=== PATIENT | female | born 1975 | race American Indian/Alaskan Native ===

== ENCOUNTER 2018-07-06 01:53 | Emergency (ER) | payer MEDICAID ==
[2018-07-06 02:03] VITALS: BP 142/102
[2018-07-06 02:37] LABS: Hemoglobin 13.4 gm/dl (10.1-14.3); Mean Corpuscular HGB Conc 34 % (30-34); Mean Corpuscular Volume 99 fl (79-97); Red Blood Count 4.03 M/mm3 (3.65-5.03); Red Cell Distribution Width 13.2 % (13.2-15.2)
--- NOTE | 2018-07-06 02:39 | XRay Report ---
FINAL REPORT EXAM: XR CHEST ROUTINE 2V HISTORY: dyspnea COMPARISON: None available. FINDINGS:: Frontal and lateral views of the chest obtained. Heart upper limits of normal in size. Mi nimal linear scarring or atelectasis at the left lung base. Otherwise, no focal consolidation or effu esvin. No pneumothorax. Visualized bony thorax is grossly intact. IMPRESSION:: Minimal linear scarring or atelectasis at the left lung base. Lungs otherwise clear. He art is upper limits of normal in size.
[2018-07-06 02:40] LABS: Bacteria,Urine 1+ /HPF (Negative); Bilirubin,Urine NEG (Negative); Blood,Urine SM (Negative); Color,Urine Yellow (Yellow); Mucus,Urine FEW /HPF; Protein,Urine <15 mg/dL mg/dL (Negative); Urobilinogen,Urine < 2.0 mg/dL (<2.0)
[2018-07-06 02:46] LABS: Platelet Count 245 K/mm3 (140-440)
[2018-07-06 03:00] LABS: Albumin 4.6 g/dL (3.9-5); Calcium 9.6 mg/dL (8.4-10.2)
[2018-07-06] MEDS ORDERED: NACL 0.9% 1000 ML 1,000 ML IV ONE (03:00)
[2018-07-06] MEDS ORDERED: TORADOL IV ONE (03:00)
[2018-07-06] MEDS ORDERED: XYLOCAINE CARDIAC IV ONE ×2 (03:01→04:00)
--- NOTE | 2018-07-06 03:02 | Emergency Department Report ---
ED General Adult HPI - General Chief complaint: Abdominal Pain Stated complaint: ABDOMINAL PAIN, BACK PAIN, SHORTNESS OF BREATH Time Seen by Provider: 07/06/18 02:50 Source: patient, RN notes reviewed Mode of arrival: Ambulatory Limitations: No Limitations - History of Present Illness Initial comments: This is a 42-year-old female, who is not known to this provider previously, who reports that she is not , denies recently delivering within the past 6 weeks, reports a history of hypertension. The patient presents to the ER with a complaint of abdominal pain, stomach pain, not eating, shortness of breath, dizziness, headache. Symptoms present 1 week. Abdominal pain is in the left lower quadrant and suprapubic region, increases with palpation and decreases with rest. It does not radiate anywhere. Patient describes her dizziness as a sensation of lightheadedness. This is present for 1 week. It is painless. It does not radiate anywhere. It does not appear to have exacerbating or relieving factors. Patient also describes a frontal headache, present for one week, not sudden or thunderclap in nature, not maximal in intensity within the first hour, and not the most intense headache of her life. There is no neck pain or neck stiffness, there is no sore throat and there is no fever. Patient reports chronic shortness of breath. She reports is gotten worse within the past month. She denies leg pain, leg swelling, recent surgery, oral contraceptive use. Patient denies dysuria. She describes resolved vaginal discharge, reports that she saw her vendor representatives last month, and was "negative for STDs." Patient is taking ibuprofen at home, with minimal relief and reported symptoms. -: Gradual, days(s), week(s) Location: head, abdomen Radiation: non-radiation Quality: aching Consistency: other Improves with: other Worsens with: other Associated Symptoms: headaches, loss of appetite, shortness of breath, weakness. denies: confusion, chest pain, cough, diaphoresis, fever/chills, malaise, nausea/vomiting, rash, seizure, syncope - Related Data Home Medications Medication Instructions Recorded Confirmed Last Taken PARoxetine [Paxil] 20 mg DAILY 05/29/13 05/30/13 05/29/13 11:36 20mg Previous Rx's Medication Instructions Recorded Last Taken Type Ranitidine HCl [Zantac] 150 mg PO BID #60 tablet 05/30/13 Unknown Rx Azithromycin [Zithromax Z-GOMEZ] 250 mg PO DAILY #6 tablet 04/15/14 Unknown Rx Cyclobenzaprine [Flexeril 10mg] 10 mg PO TID PRN #30 tablet 07/15/14 Unknown Rx HYDROcodone/APAP 5-325 [[place] 1 each PO Q6HR PRN #20 tablet 07/15/14 Unknown Rx 5-325 mg TAB] Ibuprofen [Motrin] 600 mg PO Q8H PRN #50 tablet 07/15/14 Unknown Rx Lisinopril/Hydrochlorothiazide 1 tab PO QDAY #60 tablet 07/15/14 Unknown Rx [Zestoretic 20-25 mg] Acetaminophen [Tylenol Arthritis] 650 mg PO Q6HR PRN #30 tablet.er 07/06/18 Unknown Rx Dicyclomine [Bentyl] 10 mg PO QID PRN #20 capsule 07/06/18 Unknown Rx Ibuprofen [Motrin] 600 mg PO Q8H PRN #30 tablet 07/06/18 Unknown Rx Allergies Allergy/AdvReac Type Severity Reaction Status Date / Time No Known Allergies Allergy Unverified 05/29/13 21:03 ED Review of Systems ROS: Stated complaint: ABDOMINAL PAIN, BACK PAIN, SHORTNESS OF BREATH Other details as noted in HPI Constitutional: malaise. denies: fever Eyes: denies: eye discharge, vision change ENT: denies: congestion Respiratory: shortness of breath Cardiovascular: denies: chest pain, syncope Gastrointestinal: abdominal pain Genitourinary: discharge. denies: dysuria Musculoskeletal: denies: back pain Skin: denies: lesions Neurological: headache, weakness Psychiatric: anxiety. denies: depression ED Past Medical Hx - Past Medical History Previous Medical History?: Yes Hx Hypertension: Yes Hx Congestive Heart Failure: No Hx Diabetes: No Hx Asthma: Yes Hx COPD: No Additional medical history: sarcoidosis - Surgical History Past Surgical History?: Yes Hx Breast Surgery: Yes (BREAST REDUCTION) Additional Surgical History: breast reduction - Social History Smoking Status: Current Every Day Smoker Substance Use Type: None - Medications Home Medications: Home Medications Medication Instructions Recorded Confirmed Last Taken Type PARoxetine [Paxil] 20 mg DAILY 05/29/13 05/30/13 05/29/13 11:36 History 20mg Ranitidine HCl [Zantac] 150 mg PO BID #60 tablet 05/30/13 Unknown Rx Azithromycin [Zithromax Z-GOMEZ] 250 mg PO DAILY #6 tablet 04/15/14 Unknown Rx Cyclobenzaprine [Flexeril 10mg] 10 mg PO TID PRN #30 tablet 07/15/14 Unknown Rx HYDROcodone/APAP 5-325 [[place] 1 each PO Q6HR PRN #20 tablet 07/15/14 Unknown Rx 5-325 mg TAB] Ibuprofen [Motrin] 600 mg PO Q8H PRN #50 tablet 07/15/14 Unknown Rx Lisinopril/Hydrochlorothiazide 1 tab PO QDAY #60 tablet 07/15/14 Unknown Rx [Zestoretic 20-25 mg] Acetaminophen [Tylenol Arthritis] 650 mg PO Q6HR PRN #30 tablet.er 07/06/18 Unknown Rx Dicyclomine [Bentyl] 10 mg PO QID PRN #20 capsule 07/06/18 Unknown Rx Ibuprofen [Motrin] 600 mg PO Q8H PRN #30 tablet 07/06/18 Unknown Rx ED Physical Exam - General Limitations: No Limitations General appearance: alert, in no apparent distress, anxious - Head Head exam: Present: atraumatic, normocephalic - Eye Eye exam: Present: normal appearance, PERRL, EOMI, other (visual acuity intact to finger counting, color perception, reading at a close distance). Absent: nystagmus - ENT ENT exam: Present: normal exam, normal orophraynx, mucous membranes moist, normal external ear exam - Neck Neck exam: Present: normal inspection, full ROM. Absent: tenderness, men ingismus - Respiratory Respiratory exam: Present: normal lung sounds bilaterally. Absent: respiratory distress - Cardiovascular Cardiovascular Exam: Present: regular rate, normal rhythm, normal heart sounds. Absent: bradycardia, tachycardia, irregular rhythm, systolic murmur, diastolic murmur, rubs, gallop - GI/Abdominal GI/Abdominal exam: Present: soft, tenderness, other (suprapubic and left lower quadrant abdominal tenderness. There is no right lower quadrant tenderness, th ere is no right upper quadrant tenderness, there is negative Reina sign. There is negative Rovsing sign). Absent: distended, guarding, rebound, rigid, pulsatile mass - Extremities Exam Extremities exam: Present: normal inspection, full ROM, other (2+ pulses noted in the bilateral upper, lower extremities. Compartments soft. No long bony tenderness. The pelvis is stable.). Absent: pedal edema, joint swelling, calf tenderness - Back Exam Back exam: Present: normal inspection, full ROM. Absent: tenderness, CVA t enderness (R), paraspinal tenderness, vertebral tenderness - Neurological Exam Neurological exam: Present: alert, oriented X3, CN II-XII intact, normal gait (there is no pass pointing. There is normal wbtl-ke-brsw. There is negative pronator drift. There is normal gait. There is normal tandem gait.), other (Extraocular movements intact. Tongue midline. No facial droop. Facial sensation intact to light touch in the V1, V2, V3 distribution bilaterally. 5 and 5 strength in 4 extremities.. Sensation is intact to light touch in 4 extremities.). Absent: motor sensory deficit - Psychiatric Psychiatric exam: Present: anxious - Skin Skin exam: Present: warm, dry, intact, normal color. Absent: rash ED Course Vital Signs 07/06/18 01:57 Temperature 98.9 F Pulse Rate 84 Respiratory 16 Rate Blood Pressure 142/102 O2 Sat by Pulse 100 Oximetry - Reevaluation(s) Reevaluation #1: 07/06/18 05:06 Differential diagnosis, including but not limited to: Constipation, ovarian cysts, renal colic, pelvic inflammatory disease, inflammatory bowel disease, infectious intra-abdominal disease, acute coronary syndrome, pulmonary embolus, orthostasis, vagal event, pneumonia, migraine headache, tension headache, cluster headache Assessment and plan: 42-year-old female with multiple complaints. In terms of the patient's abdominal pain, this appears to be her major complaint, we will treat her with pain medication. We will perform a gynecologic examination, transvaginal ultrasound has excluded torsion, and we are awaiting CT scan of the abdomen and pelvis. Unlikely to be dangerous or emergent pathology at this point in time. In terms of the patient's shortness of breath, dizziness, lightheadedness, she reports no pulmonary embolus or DVT risk factors, she is low risk by well's criteria, she had a negative d-dimer, and she is perc negative Troponin was negative 1, EKG essentially unchanged from prior, low risk by MARYANN score, low risk by heart score, x-ray of the chest within normal limits, not tachycardic, not hypoxic, as per the [employer] clinical policy, myocardial infarction may be excluded with 1 set of cardiac enzymes as symptoms present for greater than 8 hours. She can follow up electively with an outpatient primary care doctor for her shortness of breath. In terms of the patient's headache, she will be treated with Toradol, she had a nonfocal and unremarkable neurologic examination, with a Cheryl Coma Scale of 15, with an NIH score of 0, and a benign neurologic examination. Based off of the history physical, it is my penis he does not require advanced neuroimaging at this time. Reevaluation #2: 07/06/18 05:14 Patient reports that she has not had sex in the past month, and last month, she had a gynecologic examination and STD screening performed by her private vendor representatives. She indicated she would prefer to follow up with her outpatient vendor representatives to have a repeat examination. CT scan of the abdomen and pelvis is negative. No active vomiting. Belly soft on repeat exam. Feels improved. Noted to be playing on a cellular phone. That does not appear to be an emergent medical condition at this time, the patient is medically suitable to follow-up as an outpatient with her complaints. ED Medical Decision Making - Lab Data Result diagrams: 07/06/18 02:10 07/06/18 02:10 Vital Signs 07/06/18 01:57 Temperature 98.9 F Pulse Rate 84 Respiratory 16 Rate Blood Pressure 142/102 O2 Sat by Pulse 100 Oximetry Lab Results 07/06/18 07/06/18 07/06/18 Range/Units 02:10 02:10 02:10 WBC 8.3 (4.5-11.0) K/mm3 RBC 4.03 (3.65-5.03) M/mm3 Hgb 13.4 (10.1-14.3) gm/dl Hct 40.0 (30.3-42.9) % MCV 99 H (79-97) fl MCH 33 H (28-32) pg MCHC 34 (30-34) % RDW 13.2 (13.2-15.2) % Plt Count 245 (140-440) K/mm3 PT 13.0 (12.2-14.9) Sec. INR 0.94 (0.87-1.13) D-Dimer (0-234) ng/mlDDU Sodium 141 (137-145) mmol/L Potassium 3.6 (3.6-5.0) mmol/L Chloride 103.2 (98-107) mmol/L Carbon Dioxide 24 (22-30) mmol/L Anion Gap 17 mmol/L BUN 19 H (7-17) mg/dL Creatinine 1.2 (0.7-1.2) mg/dL Estimated GFR 59 ml/min BUN/Creatinine Ratio 16 % Glucose 99 (65-100) mg/dL Calcium 9.6 (8.4-10.2) mg/dL Total Bilirubin 0.30 (0.1-1.2) mg/dL AST 21 (5-40) units/L ALT 18 (7-56) units/L Alkaline Phosphatase 63 (35-129) units/L Troponin T (0.00-0.029) ng/mL NT-Pro-B Natriuret Pep 27.62 (0-450) pg/mL Total Protein 8.1 (6.3-8.2) g/dL Albumin 4.6 (3.9-5) g/dL Albumin/Globulin Ratio 1.3 % Lipase 37 (13-60) units/L HCG, Qual (Negative) HCG, Quant (0-4) mIU/mL Urine Color (Yellow) Urine Turbidity (Clear) Urine pH (5.0-7.0) Ur Specific [place] (1.003-1.030) Urine Protein (Negative) mg/dL Urine Glucose (UA) (Negative) mg/dL Urine Ketones (Negative) mg/dL Urine Blood (Negative) Urine Nitrite (Negative) Urine Bilirubin (Negative) Urine Urobilinogen (<2.0) mg/dL Ur Leukocyte Esterase (Negative) Urine WBC (Auto) (0.0-6.0) /HPF Urine RBC (Auto) (0.0-6.0) /HPF U Epithel Cells (Auto) (0-13.0) /HPF Urine Bacteria (Auto) (Negative) /HPF Urine Mucus /HPF 07/06/18 07/06/18 07/06/18 Range/Units 02:10 02:10 02:10 WBC (4.5-11.0) K/mm3 RBC (3.65-5.03) M/mm3 Hgb (10.1-14.3) gm/dl Hct (30.3-42.9) % MCV (79-97) fl MCH (28-32) pg MCHC (30-34) % RDW (13.2-15.2) % Plt Count (140-440) K/mm3 PT (12.2-14.9) Sec. INR (0.87-1.13) D-Dimer (0-234) ng/mlDDU Sodium (137-145) mmol/L Potassium (3.6-5.0) mmol/L Chloride (98-107) mmol/L Carbon Dioxide (22-30) mmol/L Anion Gap mmol/L BUN (7-17) mg/dL Creatinine (0.7-1.2) mg/dL Estimated GFR ml/min BUN/Creatinine Ratio % Glucose (65-100) mg/dL Calcium (8.4-10.2) mg/dL Total Bilirubin (0.1-1.2) mg/dL AST (5-40) units/L ALT (7-56) units/L Alkaline Phosphatase (35-129) units/L Troponin T < 0.010 (0.00-0.029) ng/mL NT-Pro-B Natriuret Pep (0-450) pg/mL Total Protein (6.3-8.2) g/dL Albumin (3.9-5) g/dL Albumin/Globulin Ratio % Lipase (13-60) units/L HCG, Qual Negative (Negative) HCG, Quant 2.48 (0-4) mIU/mL Urine Color (Yellow) Urine Turbidity (Clear) Urine pH (5.0-7.0) Ur Specific [place] (1.003-1.030) Urine Protein (Negative) mg/dL Urine Glucose (UA) (Negative) mg/dL Urine Ketones (Negative) mg/dL Urine Blood (Negative) Urine Nitrite (Negative) Urine Bilirubin (Negative) Urine Urobilinogen (<2.0) mg/dL Ur Leukocyte Esterase (Negative) Urine WBC (Auto) (0.0-6.0) /HPF Urine RBC (Auto) (0.0-6.0) /HPF U Epithel Cells (Auto) (0-13.0) /HPF Urine Bacteria (Auto) (Negative) /HPF Urine Mucus /HPF 07/06/18 07/06/18 Range/Units 02:10 02:25 WBC (4.5-11.0) K/mm3 RBC (3.65-5.03) M/mm3 Hgb (10.1-14.3) gm/dl Hct (30.3-42.9) % MCV (79-97) fl MCH (28-32) pg MCHC (30-34) % RDW (13.2-15.2) % Plt Count (140-440) K/mm3 PT (12.2-14.9) Sec. INR (0.87-1.13) D-Dimer 135.7 (0-234) ng/mlDDU Sodium (137-145) mmol/L Potassium (3.6-5.0) mmol/L Chloride (98-107) mmol/L Carbon Dioxide (22-30) mmol/L Anion Gap mmol/L BUN (7-17) mg/dL Creatinine (0.7-1.2) mg/dL Estimated GFR ml/min BUN/Creatinine Ratio % Glucose (65-100) mg/dL Calcium (8.4-10.2) mg/dL Total Bilirubin (0.1-1.2) mg/dL AST (5-40) units/L ALT (7-56) units/L Alkaline Phosphatase (35-129) units/L Troponin T (0.00-0.029) ng/mL NT-Pro-B Natriuret Pep (0-450) pg/mL Total Protein (6.3-8.2) g/dL Albumin (3.9-5) g/dL Albumin/Globulin Ratio % Lipase (13-60) units/L HCG, Qual (Negative) HCG, Quant (0-4) mIU/mL Urine Color Yellow (Yellow) Urine Turbidity Clear (Clear) Urine pH 5.0 (5.0-7.0) Ur Specific [place] 1.010 (1.003-1.030) Urine Protein <15 mg/dl (Negative) mg/dL Urine Glucose (UA) Neg (Negative) mg/dL Urine Ketones Neg (Negative) mg/dL Urine Blood Sm (Negative) Urine Nitrite Neg (Negative) Urine Bilirubin Neg (Negative) Urine Urobilinogen < 2.0 (<2.0) mg/dL Ur Leukocyte Esterase Neg (Negative) Urine WBC (Auto) 9.0 H (0.0-6.0) /HPF Urine RBC (Auto) 3.0 (0.0-6.0) /HPF U Epithel Cells (Auto) 6.0 (0-13.0) /HPF Urine Bacteria (Auto) 1+ (Negative) /HPF Urine Mucus Few /HPF - EKG Data -: EKG Interpreted by Me EKG shows normal: sinus rhythm, axis, intervals, QRS complexes Rate: normal - EKG Data When compared to previous EKG there are: no significant change Interpretation: no acute changes, unchanged when compared t 07/06/18 05:05 Sinus, 67 beats per minute, normal axis, normal intervals, not consistent with ST elevation myocardial infarction, appears to be unchanged from prior EKG from May 2013. - Radiology Data Radiology results: pending, report reviewed, image reviewed interpreted by me: X-ray of the chest is negative for acute disease. Pelvic ultrasound demonstrates functional cysts in both ovaries. No evidence of ovarian torsion noted. Fibroids noted. Small nabothian cysts noted. Critical care attestation.: If time is entered above; I have spent that time in minutes in the direct care of this critically ill patient, excluding procedure time. ED Disposition Clinical Impression: Lightheadedness, Lower abdominal pain Disposition: DC-01 TO HOME OR SELFCARE Is pt being admited?: No Does the pt Need Aspirin: No Condition: Good Instructions: Abdominal Pain (ED), Dyspnea (ED) Additional Instructions: Increased consumption of water to 6-8 cups of water per day. Eat plenty of fruits, fibers, vegetables. Do not take metformin for the next 48 hours, if patient takes this medication. Avoid consumption of sugary drinks. Take the medications as needed/directed. Follow up with a door patcher within the next week. Follow-up with a button decorating machine operator within the next 4-6 weeks. Return to the ER right away with new pain, worsening pain, migration of pain, projectile vomiting, change in mental status, confusion, inability to speak, inability to breathe, new, worsening or different symptoms. Referrals: [facility] [Provider Group] - as needed [facility] [Provider Group] - as needed Forms: Work/School Release Form(ED)
[2018-07-06 03:11] LABS: INR 0.94 (0.87-1.13)
[2018-07-06] MEDS ORDERED: NACL 0.9% IV ONE (04:00)
--- NOTE | 2018-07-06 04:45 | Ultrasound Report ---
FINAL REPORT EXAM: US PELVIS DUPLEX DOPPLER COMP HISTORY: pelvic pain TECHNIQUE: Transabdominal imaging was obtained of the pelvis with Doppler interrogation of the adnex a. FINDINGS: The uterus is anteverted measuring 7.9 cm x 4.9 cm x 4.7 cm. The endometrial thickness is 4.1 mm. The re is a shadowing IUD in the endometrial cavity. There is a hyperechoic fibroid in the anterior wall of the body uterus measuring 1.9 cm x 1.7 cm x 2 cm. There is a hypoechoic fibroid in the posterior w all the uterus measuring 2.1 cm x 1.6 cm x 1.5 cm. There is a small nabothian cysts in the cervix. Fr ee fluid is not seen. The right ovary measures 2 cm x 0.8 cm x 1.4 cm. There is a hemorrhagic cyst in the right ovary measu ring up to 1.2 cm in diameter. The blood flow is normal to the right ovary. The left ovary measures 2 cm x 0.6 cm x 2.0 cm. There is a complex follicle measuring up to 8 millime ters in diameter. The blood flow is normal to left ovary. IMPRESSION: Small functional cysts in both ovaries. No evidence of ovarian torsion. Two fibroids in the body uterus as described. Small nabothian cyst.
--- NOTE | 2018-07-06 04:47 | Ultrasound Report ---
FINAL REPORT EXAM: US TRANSVAGINAL HISTORY: pelvic pain TECHNIQUE: Transvaginal imaging was obtained the pelvis along with Doppler interrogation of the adne xa. FINDINGS: The uterus is anteverted measuring 7.9 cm x 4.9 cm x 4.7 cm. The endometrial thickness is 4.1 mm. The re is a shadowing IUD in the endometrial cavity. There are fibroids along the anterior and posterior bahena of the body uterus. The anterior fibroid measures 1.9 cm x 1.7 cm x 2 cm. The posterior fibroid measures 2.1 cm x 1.6 cm x 1.5 cm. There is a 7 mm nabothian cysts in the cervix. Free fluid is not seen The right ovary measures 2 cm x 0.8 cm x 1.4 cm. There is a hemorrhagic cyst measuring up to 1.2 cm i n diameter. The blood flow is normal to the right ovary. The left ovary measures 2 cm x 0.6 cm x 2 cm. There is an 8 millimeter follicle in left ovary. Blood flow is normal to left ovary. IMPRESSION: Small functional cysts in both ovaries. No evidence of ovarian torsion. Two fibroids in the body uterus as described. Small nabothian cysts. No evidence of free fluid or adnexal masses.
--- NOTE | 2018-07-06 05:03 | Cat Scan Report ---
FINAL REPORT EXAM: CT ABDOMEN PELVIS W CON HISTORY: lower abd pain TECHNIQUE: Routine axial imaging was obtained of the abdomen and pelvis following the intravenous in jection of 100 cc of Omnipaque 300. Delayed imaging was obtained through the kidneys ureters and blad dee. Sagittal and coronal reconstructions were reviewed. FINDINGS: The lung bases are negative for infiltrates or effusions. There is a small hiatal hernia. The liver, gallbladder and biliary tree appear normal. The pancreas, spleen, and adrenal glands appea r normal. The kidneys enhance normally. There is no evidence of hydronephrosis. The abdominal aorta i s normal in caliber. The portal vein enhances normally. The bowel loops are normal in caliber and cou rse. There is a moderate amount retained fecal content. The appendix is not enlarged. There is no ángela dence of free fluid or adenopathy. In the pelvis the uterus is normal size and contains a T-shaped IU D in the expected position. The bladder appears normal. There are no adnexal masses. The skeletal str uctures do not show any acute changes. IMPRESSION: No acute process in the abdomen and pelvis.
[2018-07-06] MEDS ORDERED: TORADOL ONE (05:21)
== END 2018-07-06 06:22 | disposition home or self-care (01) ==
LOC: ED 01:53
DX: R10.32 Left lower quadrant pain (principal); R42 Dizziness and giddiness; I10 Essential (primary) hypertension; J45.909 Unspecified asthma, uncomplicated; F17.200 Nicotine dependence, unspecified, uncomplicated
CPT/HCPCS: 36415; 71046; 74177; 76830; 80053; 81001; 83690; 83880; 84484; 84702; 84703; 85027; 85379; 85610; 93005; 93010; 93975; 96365; 96375; 99284; J1885; J2001; J7030; Q9967

== ENCOUNTER 2018-10-09 10:46 | Day surgery (SDC) | payer MEDICAID ==
[~2018-10-09 10:46] MED LIST: NACL 0.9% 1000 ML 1,000 ML IV SCH
== END 2018-10-09 10:47 | disposition home or self-care (01) ==
LOC: GIO 10:46
PROVIDERS: ATTEND Internal Medicine Gastroenterology
DX: R10.13 Epigastric pain (principal); R11.0 Nausea; R14.1 Gas pain; F17.210 Nicotine dependence, cigarettes, uncomplicated; E66.9 Obesity, unspecified; E07.9 Disorder of thyroid, unspecified; I10 Essential (primary) hypertension; J45.909 Unspecified asthma, uncomplicated; Z53.8 Procedure and treatment not carried out for other reasons; Z79.899 Other long term (current) drug therapy; Z98.891 History of uterine scar from previous surgery; Z98.890 Other specified postprocedural states; Z80.8 Family history of malignant neoplasm of other organs or systems

== ENCOUNTER 2019-02-01 19:34 | Emergency (ER) | payer MEDICAID ==
[2019-02-01] MEDS ORDERED: TORADOL IV ONE (20:32)
[2019-02-01] MEDS ORDERED: NACL 0.9% 1000 ML 1,000 ML IV ONE (20:33)
--- NOTE | 2019-02-01 20:34 | Event Note ---
ED Screening Note Date of service: 02/01/19 Time: 20:29 ED Screening Note: 43 y o female presents with cc of sob and headache worsening x 1 week This initial assessment/diagnostic orders/clinical plan/treatment(s) is/are subject to change based on patients health status, clinical progression and re- assessment by fellow clinical providers in the ED. Further treatment and workup at subsequent clinical providers discretion. Patient/guardian urged not to elope from the ED as their condition may be serious if not clinically assessed and managed. Initial orders include:
--- NOTE | 2019-02-01 21:17 | XRay Report ---
CHEST PA AND LATERAL VIEWS INDICATION: sob. COMPARISON: 07/06/2018 FINDINGS: Support devices: None Heart: Normal and unchanged Lungs/Pleura: No acute pulmonary or pleural findings. IMPRESSION: 1. No significant abnormality and no interval change. Signer Name: Artem Jewell MD Signed: 02/01/2019 9:13 PM Workstation Name: [id number]
[2019-02-01 21:25] LABS: BUN/Creatinine Ratio 14; Blood Urea Nitrogen 10 mg/dL (7-17); Calcium 9.4 mg/dL (8.4-10.2); Hemolysis Index 15
[2019-02-01 21:26] LABS: Basophils # (Auto) 0.2 K/mm3 (0.0-0.1); Basophils % (Auto) 1.9 % (0.0-1.8); Eosinophils # (Auto) 0.3 K/mm3 (0.0-0.4); Eosinophils % (Auto) 2.9 % (0.0-4.3); Hematocrit 43.9 % (30.3-42.9); Hemoglobin 14.8 gm/dl (10.1-14.3); Lymphocytes # (Auto) 2.8 K/mm3 (1.2-5.4); Lymphocytes % (Auto) 31.7 % (13.4-35.0); Mean Corpuscular HGB Conc 34 % (30-34); Mean Corpuscular Volume 98 fl (79-97); Monocytes # (Auto) 0.5 K/mm3 (0.0-0.8); Monocytes % (Auto) 5.3 % (0.0-7.3); Platelet Count 248 K/mm3 (140-440); Red Blood Count 4.49 M/mm3 (3.65-5.03); Red Cell Distribution Width 12.9 % (13.2-15.2)
[2019-02-01] MEDS ORDERED: REGLAN IV ONE (22:40)
[2019-02-01] MEDS ORDERED: BENADRYL IV ONE (22:40)
[2019-02-01] MEDS ORDERED: CATAPRES PO ONE (22:40)
[2019-02-01] MEDS ORDERED: TORADOL ONE (22:43)
--- NOTE | 2019-02-01 22:57 | Emergency Department Report ---
ED General Adult HPI - General Chief complaint: Dyspnea/Respdistress Stated complaint: MIGRAINE/SOB/BLURRY VISION Time Seen by Provider: 02/01/19 20:29 Source: patient Mode of arrival: Ambulatory Limitations: No Limitations - History of Present Illness Initial comments: 43-year-old -[place] female presents to the emergency room for headache, blurred vision and shortness of breath 1 week. Patient reports that her headache is located occipital area and throbbing with headache tenderness. Patient reports that she has noticed her blood pressure has been elevated and when she checked her blood pressure at [facility] today it was 200/119. Patient r eports that this headache does not feel like her typical migraine. Patient reports that she is currently on amlodipine 10 mg daily. Patient complains of blurred vision to both eyes. She denies any nausea vomiting. She reports a significant intermittent sharp pains that shoot. Antoine and does have a past medical history of hypertension. She is followed by her care provider. Onset/Timin -: week(s) Location: head Radiation: non-radiation Quality: sharp, constant, other (throbbing) Consistency: intermittent Improves with: none Worsens with: none Associated Symptoms: headaches, other (blurred vision) Treatments Prior to Arrival: none - Related Data Home Medications Medication Instructions Recorded Confirmed Last Taken Losartan-Hctz 50-12.5 mg Tab 1 tab PO DAILY 12/18/18 12/18/18 Unknown Previous Rx's Medication Instructions Recorded Last Taken Type hydroCHLOROthiazide [Hctz] 12.5 mg PO QDAY #30 capsule 02/02/19 Unknown Rx Allergies Allergy/AdvReac Type Severity Reaction Status Date / Time No Known Allergies Allergy Verified 10/09/18 08:46 ED Review of Systems ROS: Stated complaint: MIGRAINE/SOB/BLURRY VISION Other details as noted in HPI Comment: All other systems reviewed and negative Eyes: vision change Gastrointestinal: denies: abdominal pain, nausea, vomiting Neurological: headache ED Past Medical Hx - Past Medical History Previous Medical History?: Yes Hx Hypertension: Yes Hx Congestive Heart Failure: No Hx Diabetes: No Hx Asthma: Yes Hx COPD: No Additional medical history: sarcoidosis - Surgical History Past Surgical History?: Yes Hx Breast Surgery: Yes (BREAST REDUCTION) Additional Surgical History: breast reduction - Social History Smoking Status: Current Every Day Smoker Substance Use Type: None - Medications Home Medications: Home Medications Medication Instructions Recorded Confirmed Last Taken Type Losartan-Hctz 50-12.5 mg Tab 1 tab PO DAILY 12/18/18 12/18/18 Unknown History hydroCHLOROthiazide [Hctz] 12.5 mg PO QDAY #30 capsule 02/02/19 Unknown Rx ED Physical Exam - General Limitations: No Limitations General appearance: alert, in no apparent distress - Head Head exam: Present: atraumatic, normocephalic - Eye Eye exam: Present: normal appearance - ENT ENT exam: Present: mucous membranes moist - Neck Neck exam: Present: normal inspection - Respiratory Respiratory exam: Present: normal lung sounds bilaterally. Absent: respiratory distress - Cardiovascular Cardiovascular Exam: Present: regular rate, normal rhythm. Absent: systolic murmur, diastolic murmur, rubs, gallop - GI/Abdominal GI/Abdominal exam: Present: soft, normal bowel sounds - Extremities Exam Extremities exam: Present: normal inspection - Back Exam Back exam: Present: normal inspection - Neurological Exam Neurological exam: Present: alert, oriented X3 - Expanded Neurological Exam Expanded Cranial nerves: EOM's Intact: Normal, Gag Reflex: Normal, Tongue Deviation: Normal, Nystagmus: Normal, Facial Sensation: Normal, Facial Palsy with Forehead Movement: Normal, Facial Palsy without Forehead Movement: Normal Cerebellar function: Finger to Nose: Normal, Heel to Sharpe: Normal, Romberg: Normal Upper motor neuron: Ramírez Neglect: Normal, Pronator Drift: Normal, Babinski Sign: Normal, Sensory Extinction: Normal Sensory exam: Upper Extremity Light Touch: Normal, Upper Extremity Pin Prick: Normal, Upper Extremity Temperature: Normal, UE 2 Point Discrimination: Normal, Lower Extremity Light Touch: Normal, Lower Extremity Pin Prick: Normal, Lower Extremity Temperature: Normal, LE 2 Point Discrimination: Normal Motor strength exam: RUE: 4, LUE: 4, RLE: 4, LLE: 4 Best Eye Response (Kirksey): (4) open spontaneously Best Motor Response (Cheryl): (6) obeys commands Best Verbal Response (Kirksey): (5) oriented Cheryl Total: 15 - Psychiatric Psychiatric exam: Present: normal affect, normal mood - Skin Skin exam: Present: warm, dry, intact, normal color. Absent: rash ED Course Vital Signs 02/01/19 02/01/19 02/01/19 19:39 22:52 23:13 Temperature 98.5 F Pulse Rate 96 H 80 Respiratory 18 16 Rate Blood Pressure 151/107 139/90 O2 Sat by Pulse 99 Oximetry - Reevaluation(s) Reevaluation #1: 02/02/19 00:21 She reports her headache has resolved and she feels much better. ED Medical Decision Making - Lab Data Result diagrams: 02/01/19 20:44 02/01/19 20:44 Laboratory Tests 02/01/19 02/01/19 20:44 20:44 WBC 8.8 RBC 4.49 Hgb 14.8 H Hct 43.9 H MCV 98 H MCH 33 H MCHC 34 RDW 12.9 L Plt Count 248 Lymph % (Auto) 31.7 [facility] % (Auto) 5.3 Eos % (Auto) 2.9 Baso % (Auto) 1.9 H Lymph # 2.8 [facility] # 0.5 Eos # 0.3 Baso # 0.2 H Seg Neutrophils % 58.2 Seg Neutrophils # 5.1 Sodium 138 Potassium 3.4 L Chloride 99.7 Carbon Dioxide 25 Anion Gap 17 BUN 10 Creatinine 0.7 Estimated GFR > 60 BUN/Creatinine Ratio 14 Glucose 97 Calcium 9.4 - Radiology Data Radiology results: report reviewed Patient: WILLIAM RICCI MR#: [id number] : 1975 Acct:[id number] Age/Sex: 43 / F ADM Date: 02/01/19 Loc: ED Attending Dr: Ordering Physician: LISA STOUT Date of Service: 02/01/19 Procedure(s): XR chest routine 2V Accession Number(s): [id number] cc: LISA STOUT Fluoro Time In Minutes: CHEST PA AND LATERAL VIEWS INDICATION: sob. COMPARISON: 07/06/2018 FINDINGS: Support devices: None Heart: Normal and unchanged Lungs/Pleura: No acute pulmonary or pleural findings. IMPRESSION: 1. No significant abnormality and no interval change. Signer Name: Artem Jewell MD Signed: 02/01/2019 9:13 PM Workstation Name: [id number] Transcribed By: TM Dictated By: Artem Jewell MD Electronically Authenticated By: Artem Jewell MD Signed Date/Time: 02/01/192112 DD/ 11 TD/TT: - Medical Decision Making 43-year-old -[place] female presents to the emergency room for headache, blurred vision and shortness of breath 1 week. Patient reports that her headache is located occipital area and throbbing with headache tenderness. Patient reports that she has noticed her blood pressure has been elevated and when she checked her blood pressure at [facility] today it was 200/119. Patient reports that this headache does not feel like her typical migraine. Patient reports that she is currently on amlodipine 10 mg daily. Patient complains of blurred vision to both eyes. She denies any nausea vomiting. She reports a significant intermittent sharp pains that shoot. Antoine and does have a past medical history of hypertension. She is followed by her care provider. Critical care attestation.: If time is entered above; I have spent that time in minutes in the direct care of this critically ill patient, excluding procedure time. ED Disposition Clinical Impression: Headache, HTN, goal below 130/80 Disposition: DC-01 TO HOME OR SELFCARE Is pt being admited?: No Does the pt Need Aspirin: No Condition: Stable Instructions: Migraine Headache (ED), Hypertension (ED) Additional Instructions: Please start new high blood pressure medication of hydrochlorothiazide 12.5 mg daily continue with her amlodipine 10 mg daily. Please follow up with her primary care provider for reevaluation of your blood pressure. Prescriptions: hydroCHLOROthiazide [Hctz] 12.5 mg PO QDAY #30 capsule Forms: Work/School Release Form(ED)
[2019-02-01 23:13] VITALS: BP 139/90
== END 2019-02-02 00:35 | disposition home or self-care (01) ==
LOC: ED 19:34
DX: I10 Essential (primary) hypertension (principal); J45.909 Unspecified asthma, uncomplicated; F17.200 Nicotine dependence, unspecified, uncomplicated; Z98.890 Other specified postprocedural states
CPT/HCPCS: 36415; 71046; 80048; 85025; 96374; 96375; 99284; J1200; J1885; J2765; J7030; 96361